=== PATIENT | female | born 1995 | race Two or more races ===

== ENCOUNTER 2018-08-07 11:24 | Emergency (ER) | payer OTHER ==
[~2018-08-07] VITALS: Ht 167.6 cm; Wt 59.9 kg
[2018-08-07 11:39] VITALS: BP 132/92; Ht 167.6 cm; Wt 59.9 kg
[2018-08-08] MEDS ORDERED: ONDANSETRON4 M3 PO (03:40)
[2018-08-08] MEDS ORDERED: [UNRECOGNIZED DRUG - OTHER] PO (03:41)
[2018-08-08] MEDS ORDERED: NORCO1 TA2 PO (03:41)
[2018-08-08] MEDS ORDERED: PEPCID20 MG PO (03:42)
[2018-08-08] MEDS ORDERED: MOT600 PO (03:43)
[2018-08-08] MEDS ORDERED: METOCLOPRAMIDE10 M2 PO (03:43)
== END 2018-08-07 11:49 | disposition left against medical advice (07) ==
LOC: ED 11:24
DX: Z53.21 Procedure and treatment not carried out due to patient leaving prior to being seen by health care provider (principal)

== ENCOUNTER 2018-08-08 00:29 | Inpatient (IN) | payer OTHER ==
[~2018-08-08] VITALS: Ht 170.2 cm; Wt 60.0 kg
[2018-08-08 00:39] VITALS: Ht 170.2 cm; Wt 60.0 kg
[2018-08-08 01:13] LABS: microscopic required? NO
[2018-08-08 01:23] LABS: UA SPECIFIC GRAVITY 1.015 (1.005-1.035); urine erythrocyte NEGATIVE (NEGATIVE)
[2018-08-08 01:33] LABS: BASOPHIL % 0.4 % (0-2); PLATELET COUNT 380 x10^3mcL (130-400); RED CELL DISTRIBUTION WIDTH 12.6 % (11.5-14.5)
[2018-08-08 01:43] LABS: CALCIUM 8.2 mg/dL (8.5-10.1); CHLORIDE SERUM 101 mmol/L (98-107); CREATININE SERUM 0.8 mg/dL (0.6-1.0); GFR1 > 60 mL/min; GLUCOSE SERUM 99 mg/dL (74-106); POTASSIUM SERUM 3.4 mmol/L (3.5-5.1); SODIUM SERUM 136 mmol/L (136-145)
[2018-08-08 01:48] LABS: ALBUMIN 3.8 g/dL (3.4-5.0); ALKALINE PHOSPHATASE 50 U/L (46-116); ALT/SGPT 22 U/L (14-59); AST/SGOT 17 U/L (15-37); BILIRUBIN TOTAL 0.6 mg/dL (0.20-1.00); LIPASE 142 IU/L (73-393); TOTAL PROTEIN, SERUM 6.9 g/dL (6.4-8.2)
[2018-08-08] MEDS ORDERED: ONDANSETRON4 M3 PO (03:40)
[2018-08-08] MEDS ORDERED: NORCO1 TA2 PO (03:41)
[2018-08-08] MEDS ORDERED: [UNRECOGNIZED DRUG - OTHER] PO (03:41)
[2018-08-08] MEDS ORDERED: PEPCID20 MG PO (03:42)
[2018-08-08] MEDS ORDERED: METOCLOPRAMIDE10 M2 PO (03:43)
[2018-08-08] MEDS ORDERED: MOT600 PO (03:43)
[2018-08-08 04:40] VITALS: BP 134/92
[2018-08-08 04:44] LABS: MAGNESIUM 1.9 mg/dL (1.8-2.4); PHOSPHOROUS 3.8 mg/dL (2.5-4.9)
[2018-08-08 04:45] LABS: CHOLESTEROL/HDL RATIO 2.4
[2018-08-08 08:01] LABS: AMPHETAMINE QUAL UR NONE DETECTED (See below)
[2018-08-08 08:08] VITALS: BP 132/85
[2018-08-08 08:12] LABS: T3 TOTAL 0.59 ng/mL
[2018-08-08 08:46] LABS: FREE T4 1.18 ng/dL (0.76-1.46); FREE THYROXINE INDEX 2.6 ug/dL (1.4-4.5); T4(THYROXINE) 6.9 ug/dL (4.7-13.3)
[2018-08-08 17:37] VITALS: BP 137/84
[2018-08-08 19:22] VITALS: BP 137/84
== END 2018-08-08 19:51 | disposition home or self-care (01) | DRG 254 ==
LOC: ED 00:29 → MU 03:36
PROVIDERS: Emergency Medicine; Family Medicine; Internal Medicine Gastroenterology
PROC: 0DB78ZX Excision of Stomach, Pylorus, Via Natural or Artificial Opening Endoscopic, Diagnostic (ICD-10-PCS; principal; 2018-08-08 12:30)
DX: K58.9 Irritable bowel syndrome, unspecified (principal); E87.6 Hypokalemia; F12.10 Cannabis abuse, uncomplicated; F13.10 Sedative, hypnotic or anxiolytic abuse, uncomplicated; Z68.20 Body mass index [BMI] 20.0-20.9, adult; Z71.51 Drug abuse counseling and surveillance of drug abuser
CPT/HCPCS: 43235; 84439; C9113; G0480; J1610; J2250; J2270; J2310; J2405; J2550; J3010; J3490; J7030; Q0092

== ENCOUNTER 2018-08-09 12:13 | Inpatient (IN) | payer OTHER ==
[~2018-08-09] VITALS: Ht 170.2 cm; Wt 59.0 kg
[~2018-08-09 12:13] MED LIST: METOCLOPRAMIDE10 M2 PO; MOT600 PO; NORCO1 TA2 PO; ONDANSETRON4 M3 PO; PEPCID20 MG PO; [UNRECOGNIZED DRUG - OTHER] PO
[2018-08-09 12:22] VITALS: Ht 170.2 cm; Wt 59.0 kg
[2018-08-09 14:34] LABS: BASOPHIL % 1.3 % (0-2); PLATELET COUNT 375 x10^3mcL (130-400); RED CELL DISTRIBUTION WIDTH 13.8 % (11.5-14.5)
[2018-08-09 14:44] LABS: microscopic required? NO
[2018-08-09 14:45] LABS: CALCIUM 8.9 mg/dL (8.5-10.1); CARBON DIOXIDE 19.7 mmol/L (21-32); CHLORIDE SERUM 101 mmol/L (98-107); CREATININE SERUM 0.7 mg/dL (0.6-1.0); GFR1 > 60 mL/min; GLUCOSE SERUM 73 mg/dL (74-106); POTASSIUM SERUM 3.3 mmol/L (3.5-5.1); SODIUM SERUM 138 mmol/L (136-145)
[2018-08-09 14:50] LABS: ALBUMIN 4.5 g/dL (3.4-5.0); ALKALINE PHOSPHATASE 54 U/L (46-116); ALT/SGPT 28 U/L (14-59); AST/SGOT 30 U/L (15-37); BILIRUBIN TOTAL 0.8 mg/dL (0.20-1.00); LIPASE 115 IU/L (73-393)
[2018-08-09 14:52] LABS: urine erythrocyte NEGATIVE (NEGATIVE)
[2018-08-09 17:44] LABS: AMPHETAMINE QUAL UR NONE DETECTED (See below)
[2018-08-09 17:56] LABS: T3 TOTAL 0.99 ng/mL
[2018-08-09 18:02] LABS: CHOLESTEROL/HDL RATIO 2.4; PHOSPHOROUS 1.5 mg/dL (2.5-4.9)
[2018-08-09 18:12] LABS: FREE T4 1.54 ng/dL (0.76-1.46); FREE THYROXINE INDEX 3.3 ug/dL (1.4-4.5); T4(THYROXINE) 8.9 ug/dL (4.7-13.3)
[2018-08-09 19:10] VITALS: BP 142/92
[2018-08-09 20:33] VITALS: BP 128/88
[2018-08-10 05:35] VITALS: BP 113/76
[2018-08-10 07:16] LABS: CALCIUM 8.4 mg/dL (8.5-10.1); CARBON DIOXIDE 24.6 mmol/L (21-32); CHLORIDE SERUM 109 mmol/L (98-107); CREATININE SERUM 0.7 mg/dL (0.6-1.0); GFR1 > 60 mL/min; GLUCOSE SERUM 83 mg/dL (74-106); MAGNESIUM 2.2 mg/dL (1.8-2.4); PHOSPHOROUS 4.2 mg/dL (2.5-4.9); SODIUM SERUM 140 mmol/L (136-145)
[2018-08-10 07:25] LABS: BASOPHIL % 0.4 % (0-2); PLATELET COUNT 340 x10^3mcL (130-400); RED CELL DISTRIBUTION WIDTH 12.9 % (11.5-14.5)
[2018-08-10 08:33] VITALS: BP 121/80
[2018-08-10] MEDS ORDERED: DOXYCYCLINE HY100 MG PO (10:39)
[2018-08-10 11:14] VITALS: BP 121/80
== END 2018-08-10 13:40 | disposition home or self-care (01) | DRG 254 ==
LOC: ED 12:13 → MU 17:02
PROVIDERS: Emergency Medicine; Internal Medicine
DX: K58.9 Irritable bowel syndrome, unspecified (principal); R18.8 Other ascites; N73.9 Female pelvic inflammatory disease, unspecified; E87.6 Hypokalemia; F12.20 Cannabis dependence, uncomplicated; Z68.20 Body mass index [BMI] 20.0-20.9, adult; K29.70 Gastritis, unspecified, without bleeding; F41.9 Anxiety disorder, unspecified
CPT/HCPCS: 83880; 84439; 87491; 87591; J0696; J1885; J2060; J2270; J2405; J2550; J3010; J3480; J3490; J7030; Q0092

== ENCOUNTER 2019-01-08 09:29 | Emergency (ER) | payer OTHER ==
[~2019-01-08] VITALS: Ht 170.2 cm; Wt 61.9 kg
[~2019-01-08 09:29] MED LIST changes: +DOXYCYCLINE HY100 MG PO
[2019-01-08 09:36] VITALS: Ht 170.2 cm; Wt 61.9 kg
[2019-01-08 10:34] LABS: BASOPHIL % 0.2 % (0-2); PLATELET COUNT 353 x10^3mcL (130-400); RED CELL DISTRIBUTION WIDTH 13.4 % (11.5-14.5)
[2019-01-08 10:34] LABS: microscopic required? NO
[2019-01-08 10:35] LABS: CALCIUM 8.7 mg/dL (8.5-10.1); CARBON DIOXIDE 26.3 mmol/L (21-32); CHLORIDE SERUM 102 mmol/L (98-107); CREATININE SERUM 0.8 mg/dL (0.6-1.0); GFR1 > 60 mL/min; GLUCOSE SERUM 102 mg/dL (74-106); POTASSIUM SERUM 3.9 mmol/L (3.5-5.1); SODIUM SERUM 139 mmol/L (136-145)
[2019-01-08 10:39] LABS: ALBUMIN 3.9 g/dL (3.4-5.0); ALKALINE PHOSPHATASE 62 U/L (46-116); ALT/SGPT 24 U/L (14-59); AMYLASE 67 U/L (25-115); AST/SGOT 22 U/L (15-37); BILIRUBIN TOTAL 0.8 mg/dL (0.20-1.00); LIPASE 81 IU/L (73-393); TOTAL PROTEIN, SERUM 7.3 g/dL (6.4-8.2)
[2019-01-08 10:46] LABS: UA SPECIFIC GRAVITY <=1.005 (1.005-1.035); urine erythrocyte NEGATIVE (NEGATIVE)
[2019-01-08 13:29] VITALS: BP 121/77
== END 2019-01-08 13:29 | disposition home or self-care (01) ==
LOC: ED 09:29
PROVIDERS: Specialist
DX: R10.32 Left lower quadrant pain (principal); R10.31 Right lower quadrant pain; R11.10 Vomiting, unspecified
CPT/HCPCS: J1885; J7030

== ENCOUNTER 2019-01-09 21:43 | Inpatient (IN) | payer OTHER ==
[~2019-01-09] VITALS: Ht 170.2 cm; Wt 65.7 kg
[2019-01-09 22:00] VITALS: Ht 170.2 cm; Wt 65.7 kg
--- NOTE | 2019-01-09 22:38 | NUR ---
PT PRESENTS TO THE ER TODAY FOR PERIUMBILCAL PAIN X 4 DAYS. PT WAS HERE YESTERDAY FOR THE SAME REASON AND ALL TESTS WERE NEGAITIVE AND PT WAS PRESCIBED BENTYL BUT PT STATES "I ONLY TOOK IT ONCE BECAUSE IT HURT MY STOMACH". PT STATES PAIN PERSISTED AND SHE WENT TO A DIFFERENT HOSPITAL WHERE THEY DID A CT SCAN WHICH WAS NORMAL PER THE PT. PT STATES THEY GAVE HER A RX FOR ZOFRAN BUT SHE DID NOT GET THE RX FILLED BECAUSE " I FELL ASLEEP". PT NOW COMPLAINS OF 10/10 PERIUMBILACAL PAIN DESCRIBED PRESSURE,BURNING, AND SHARP PAIN. PT COMPLAINS OF N/V/D FOR THE PAST 4 DAYS. PT STATES IT HAS BEEN 2 DAYS SINCE HER LAST BM AND SHE NORMAL HAS ONE EVERYDAY. 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 PT BOWEL SOUNDS ACTIVE IN ALL QUADRANTS. PT DENIES ANY OTHER SYPTOMS OF COMPLAINTS. VITAL SIGNS STABLE. RESPIRATIONS EVEN AND UNLABORED. NO ACUTE DISTRESS NOTED.
[2019-01-09 23:10] LABS: microscopic required? NO
[2019-01-09 23:21] LABS: BASOPHIL % 0.2 % (0-2); PLATELET COUNT 353 x10^3mcL (130-400); RED CELL DISTRIBUTION WIDTH 13.1 % (11.5-14.5)
[2019-01-09 23:24] LABS: urine erythrocyte NEGATIVE (NEGATIVE)
[2019-01-09 23:30] LABS: CALCIUM 7.9 mg/dL (8.5-10.1); CARBON DIOXIDE 24.2 mmol/L (21-32); CHLORIDE SERUM 105 mmol/L (98-107); CREATININE SERUM 0.8 mg/dL (0.6-1.0); GFR1 > 60 mL/min; GLUCOSE SERUM 92 mg/dL (74-106); POTASSIUM SERUM 3.4 mmol/L (3.5-5.1); SODIUM SERUM 139 mmol/L (136-145)
[2019-01-09 23:33] LABS: AMPHETAMINE QUAL UR NONE DETECTED (See below)
[2019-01-09 23:36] LABS: ALBUMIN 3.5 g/dL (3.4-5.0); ALKALINE PHOSPHATASE 52 U/L (46-116); ALT/SGPT 24 U/L (14-59); AST/SGOT 29 U/L (15-37); BILIRUBIN TOTAL 0.84 mg/dL (0.20-1.00); LIPASE 61 IU/L (73-393); TOTAL PROTEIN, SERUM 6.4 g/dL (6.4-8.2)
--- NOTE | 2019-01-09 23:57 | NUR ---
PT STATES SHE WAS WOKEN UP WITH PAIN BEGINNING TO RETURN. PT RATES PAIN 4/10 AT THIS TIME, STATING "THIS IS HOW IT STARTS AND QUICKLY GOES UP TO 10. I GET WOKEN UP WITH THE PAIN."
--- NOTE | 2019-01-10 00:52 | NUR ---
GAVE REPORT TO ROSY ON MED/SURG FOR CONTINUATION OF CARE.
--- NOTE | 2019-01-10 01:00 | NUR ---
PATIENT IS A 23 YEAR OLD FEMALE ADMITTED FROM ER VIA WHEELCHAIR DUE TO COMPLAIN OF ABDOMINAL PAIN. PATIENT IS AWAKE, ALERT, ORIENTED X4 WITH COMPLAIN OF PRESSURE LIKE ABOMINAL PAIN, PS 4/10. LBM 01/06/19. RESPIRATION EVEN AND UNLABORED, ON ROOM AIR. MOVES ALL EXTREMITIES FREELY. RADIAL AND PEDAL PULSES PALPABLE, NO EDEMA NOTED. SKIN DRY AND INTACT. PATIENT CLAIMS SHE USES [facility] SINCE SHE WAS 15 YEARS OLD LAST TIME SHE USED IT WAS A WEEK AGO. [facility] WILL CONTINUE TO MONITOR.
[2019-01-10 01:07] LABS: MAGNESIUM 1.6 mg/dL (1.8-2.4); PHOSPHOROUS 2.9 mg/dL (2.5-4.9)
[2019-01-10 01:15] VITALS: BP 112/64
[2019-01-10 01:15] LABS: CHOLESTEROL/HDL RATIO 2.5
[2019-01-10 01:16] LABS: T3 TOTAL 1.07 ng/mL
[2019-01-10 01:18] LABS: FREE T4 1.46 ng/dL (0.76-1.46); T4(THYROXINE) 9.6 ug/dL (4.7-13.3)
--- NOTE | 2019-01-10 02:20 | NUR ---
PATIENT COMPLAINED OF PRESSURE LIKE ABDOMINAL PAIN, PS 4-7/10. OFFERED NORCO 5/325 MG PO ORDERED BUT REFUSED. DR MARTINEZ MADE AWARE. ALSO MADE AWARE THAT PATIENT REFUSED GI COCKTAIL. WILL CONTINUE TO MONITOR.
--- NOTE | 2019-01-10 02:26 | NUR ---
PATIENT GIVEN TORADOL 15 MG IVP ORDERED FOR ABDOMINAL PAIN. PATIENT STATED "IT'S NOT HELPING MY PAIN." EXPLAINED TO PATIENT THAT SHE NEEDS TO GIVE IT TIME TO WORK. WILL CONTINUE TO MONITOR.
--- NOTE | 2019-01-10 02:40 | NUR ---
PATIENT CAME OUT OF HER ROOM CRYING, STATED "I NEED A BETTER PAIN MEDICATIONS, IT'S NOT WORKING." PATIENT ESCORTED BACK TO HER ROOM. DR MARTINEZ MADE AWARE PERSONALLY. PER DR MARTINEZ HE WILL TALK TO THE PATIENT SOON HE CAN. PATIENT MADE AWARE.
--- NOTE | 2019-01-10 02:45 | NUR ---
PATIENT CALLED AGAIN STILL COMPLAINING OF ABDOMINAL PAIN, LOOKING FOR THE DOCTOR. EXPLAINED TO PATIENT THAT THE MD WILL COME TALK TO HER SOON HE CAN. COMFORT MEASURES PROVIDED. WILL CONTINUE TO MONITOR.
--- NOTE | 2019-01-10 03:00 | NUR ---
DR MARTINEZ IN THE ROOM TALKING TO PATIENT.
--- NOTE | 2019-01-10 03:26 | NUR ---
PATIENT REFUSED POTASSIUM 20 MEQS PO DESPITE EXPLANATION AND ENCOURAGEMENT. WILL CONTINUE TO MONITOR.
[2019-01-10 06:06] VITALS: BP 109/65
--- NOTE | 2019-01-10 06:12 | NUR ---
PATIENT SLEEPING IN BED AT THIS TIME. RESPIRATION EVEN AND UNLABORED, ON ROOM AIR. NO COMPLAIN OF DISCOMFORT/PAIN. IV SITE NO SIGN OF INFILTRATION. ASSISTED WITH NEEDS. SAFETY OBSERVED. PLACED BED IN THE LOWEST POSITION. PLACED CALL LIGHT WITHIN REACH AT ALL TIMES.
[2019-01-10 06:26] LABS: BASOPHIL % 0.2 % (0-2); PLATELET COUNT 325 x10^3mcL (130-400); RED CELL DISTRIBUTION WIDTH 13.2 % (11.5-14.5)
[2019-01-10 06:41] LABS: CALCIUM 8.2 mg/dL (8.5-10.1); CARBON DIOXIDE 22.9 mmol/L (21-32); CHLORIDE SERUM 106 mmol/L (98-107); CREATININE SERUM 0.7 mg/dL (0.6-1.0); GFR1 > 60 mL/min; GLUCOSE SERUM 81 mg/dL (74-106); MAGNESIUM 1.8 mg/dL (1.8-2.4); PHOSPHOROUS 3.8 mg/dL (2.5-4.9); POTASSIUM SERUM 3.6 mmol/L (3.5-5.1); SODIUM SERUM 140 mmol/L (136-145)
--- NOTE | 2019-01-10 07:10 | NUR ---
RECEIVED BEDSIDE REPORT FROM SAMPLE PASTER NURSE AT THIS TIME. PATIENT RESTING CMOFORTABLY IN BED. NO APPARENT DISTRESS OR DISCOMFORT NOTED. BREATHING EVEN AND UNLABORED. NO RESPIRATORY DISTRESS NOTED. NO INDICATION OF CHEST PAIN AT THIS TIME. IV PATENT AND INTACT. NO INDICATION OF PAIN/DISCOMFORT AT THIS TIME. ALL QUESTIONS AND CONCERNS ADDRESSED. ALL NEEDS ATTENDED TO. ALL SAFETY PRECAUTIONS MAINTAINED. WILL CONTINUE TO MONITOR
[2019-01-10 09:34] VITALS: BP 107/66
--- NOTE | 2019-01-10 10:00 | NUR ---
MORNING MEDICATIONS ADMINSITERED. PATIENT TOLERATED WELL. NO ADVERSE EFFECTS NOTED. ALL NEEDS ATTENDED TO
--- NOTE | 2019-01-10 13:10 | NUR ---
PATIENT C/O ABD PAIN AT THIS TIME. TORADOL OFFERED TO PATIENT. PATIENT REFUSING TO TAKE TORADOL. PER PATIENT, TORADOL DOES NOT WORK. SPOKE TO DR ROMERO. REPORTED TO DR ROMERO PATIENT STATES ATIVAN HELPS HER. DR ROMERO TO INPUT ORDER FOR ATIVAN. WILL MEDICATE ORDERED. WILL CONTINUE TO MONITOR
--- NOTE | 2019-01-10 14:55 | NUR ---
PATIENT MEDICATED WITH ATIVAN AT THIS TIME. PATIENT TOLERATED WELL. NO ADVERSE EFFECTS NOTED. ALL NEEDS ATTENDED TO. WILL CONTINUE TO MONITOR
[2019-01-10 17:39] VITALS: BP 120/78
--- NOTE | 2019-01-10 19:08 | NUR ---
PATIENT RESTING COMFORTABLY IN BED AT THIS TIME. NO APPARENT DISTRESS OR DISCOMFORT NOTED. IV PATENT AND INTACT. ALL QUESTIONS AND CONCERNS ADDRESSED. SAFETY PRECAUTIONS MAINTAINED. ALL NEEDS ATTENDED TO. WILL ENDORSE ALL CARE TO LEGISLATIVE ADVOCATE NURSE
--- NOTE | 2019-01-10 19:50 | NUR ---
RECEIVED REPORT FROM DAY SHIFT RN. PT A/O X4. NO SOB ON ROOM AIR. NO C/O N/V/ABD PAIN AT THIS TIME. IV TO RAC, NS INFUSING. SAFETY MEASURES IN PLACE. BED IN LOWEST POSITION. SIDE RAILS UP X2. INSTRUCTED PT TO USE THE CALL LIGHT FOR ASSISTANCE. CALL LIGHT WITHIN REACH. FAMILY AT BEDSIDE.
[2019-01-10 20:49] VITALS: BP 112/64
--- NOTE | 2019-01-10 22:06 | NUR ---
ATIVAN GIVEN FOR ANXIETY.
--- NOTE | 2019-01-11 00:40 | NUR ---
PT RESTING WITH EYES CLOSED. BREATHING EVEN AND UNLABORED. NO FACIAL GRIMACING. NO DISTRESS NOTED. CALL LIGHT WITHIN REACH.
[2019-01-11 05:50] VITALS: BP 116/82
--- NOTE | 2019-01-11 05:59 | NUR ---
PT SLEPT WELL DURING SHIFT. NO SOB ON ROOM AIR. NO C/O N/V/ABD PAIN. NO DISTRESS NOTED. PT STATES FEELING BETTER. SAFETY MEASURES MAINTAINED. ALL NEEDS ATTENDED TO. CALL LIGHT WITHIN REACH. WILL ENDORSE CONTINUITY OF CARE TO ONCOMING RN.
[2019-01-11 06:09] LABS: BASOPHIL % 0.5 % (0-2); PLATELET COUNT 350 x10^3mcL (130-400)
[2019-01-11 06:28] LABS: CALCIUM 8.2 mg/dL (8.5-10.1); CARBON DIOXIDE 25.6 mmol/L (21-32); CHLORIDE SERUM 105 mmol/L (98-107); CREATININE SERUM 0.7 mg/dL (0.6-1.0); GFR1 > 60 mL/min; GLUCOSE SERUM 83 mg/dL (74-106); POTASSIUM SERUM 3.7 mmol/L (3.5-5.1); SODIUM SERUM 138 mmol/L (136-145)
--- NOTE | 2019-01-11 07:30 | NUR ---
RECIEVED PT RESTING COMFORTABLY IN BED. VS WNL AND NO RESPIRATORY DISTRESS NOTED AT THIS TIME. PT DENIES ANY PAIN AT THIS TIME. IV AT RAC 20G INTACT AND PATENT. NS RUNNING AT 100ML/HR. PT A/OX4, LUNGS CTA, PULSES PALPABE, SKIN CDI, VOIDS FREELY, AMBULATORY. PT WELL WITH CARE. SAFETY PRECAUTIONS IN PLACE, CALL LIGHT WITHIN REACH. WILL MONITOR.
--- NOTE | 2019-01-11 08:38 | NUR ---
PATIENT REFUSED SENAKOT AND COLACE AT MORNING MED PASS. SHE STATES THAT SHE ALREADY HAD X2 LOOSE STOOLS. DR RICE NOTIFIED. WILL MONITOR
--- NOTE | 2019-01-11 08:38 | NUR ---
PATIENT REFUSED SENAKOT AND COLACE AT MORNING MED PASS. SHE STATES THAT SHE ALREADY HAD X2 LOOSE STOOLS. DR RICE NOTIFIED. WILL MONITOR
--- NOTE | 2019-01-11 08:53 | NUR ---
PATIENT COMPLAINED OF ANXIETY. ATIVAN GIVEN PER RX (SEE eMAR). FARHEEN REASSESS EFFECTIVENESS.
--- NOTE | 2019-01-11 08:53 | NUR ---
PATIENT COMPLAINED OF ANXIETY. ATIVAN GIVEN PER RX (SEE eMAR). FARHEEN REASSESS EFFECTIVENESS.
[2019-01-11 09:13] VITALS: BP 115/77
--- NOTE | 2019-01-11 09:49 | NUR ---
DR RICE AT BEDSIDE TO SEE PATIENT, DR RICE ASKED HOW SHE WAS FEELING AND SHE RESPONDED WELL. DR RICE THEN ASKED IF SHE WAS READY TO GO HOME AND PT RESPONDED YES. NO NEW ORDERS AT THIS TIME. WILL MONITOR
[2019-01-11 12:05] VITALS: BP 115/77
--- NOTE | 2019-01-11 12:17 | NUR ---
PT STABLE FOR DISCHARGE HOME. DISCHARGE INSTRUCTIONS, BELONGINGS, AND EDUCATION REVIEWED WITH PATIENT. PATIENT VERBALIZED UNDERSTANDING TO F/U WITH PCP. IV REMOVED WITH CATH INTACT AND ARM BAND REMOVED. PT ASSISTED DOWN TO LOBBY
== END 2019-01-11 12:17 | disposition home or self-care (01) | DRG 812 ==
LOC: ED 21:43 → MU 01-10 00:28
PROVIDERS: Emergency Medicine; ADMIT Family Medicine
DX: T40.7X1A Poisoning by cannabis (derivatives), accidental (unintentional), initial encounter (principal); E83.42 Hypomagnesemia; E87.6 Hypokalemia; G43.A0 Cyclical vomiting, in migraine, not intractable; E83.51 Hypocalcemia; E05.80 Other thyrotoxicosis without thyrotoxic crisis or storm; K29.70 Gastritis, unspecified, without bleeding; Y92.89 Other specified places as the place of occurrence of the external cause; K59.00 Constipation, unspecified
CPT/HCPCS: 83880; 84439; C9113; J1885; J2060; J2405; J2550; J2765; J3010; J3490; J7030; Q0092

== ENCOUNTER 2019-12-24 10:06 | Emergency (ER) | payer OTHER ==
[~2019-12-24] VITALS: Ht 170.2 cm; Wt 62.6 kg
[2019-12-24 10:14] VITALS: Ht 170.2 cm; Wt 62.6 kg
[2019-12-24 11:26] LABS: CALCIUM 9.3 mg/dL (8.5-10.1); CARBON DIOXIDE 28.6 mmol/L (21-32); CHLORIDE SERUM 100 mmol/L (98-107); CREATININE SERUM 0.8 mg/dL (0.6-1.0); GFR1 > 60 mL/min; GLUCOSE SERUM 88 mg/dL (74-106); POTASSIUM SERUM 3.7 mmol/L (3.5-5.1); SODIUM SERUM 140 mmol/L (136-145)
[2019-12-24 11:28] VITALS: BP 120/77
[2019-12-24 11:31] LABS: ALBUMIN 3.8 g/dL (3.4-5.0); ALKALINE PHOSPHATASE 73 U/L (46-116); ALT/SGPT 23 U/L (14-59); AST/SGOT 24 U/L (15-37); BILIRUBIN TOTAL 0.6 mg/dL (0.20-1.00); LIPASE 73 IU/L (73-393); TOTAL PROTEIN, SERUM 7.4 g/dL (6.4-8.2)
[2019-12-24 11:52] LABS: UA SPECIFIC GRAVITY >=1.030 (1.005-1.035); microscopic required? YES; urine erythrocyte 2+ (NEGATIVE)
[2019-12-24 12:01] LABS: AMPHETAMINE QUAL UR NONE DETECTED (See below)
[2019-12-24 12:06] LABS: PLATELET COUNT 416 x10^3mcL (130-400); RED CELL DISTRIBUTION WIDTH 14.7 % (11.5-14.5)
[2019-12-24 12:07] LABS: BASOPHIL % 0.3 % (0-2)
== END 2019-12-24 13:21 | disposition home or self-care (01) ==
LOC: ED 10:06
PROVIDERS: Emergency Medicine
DX: N39.0 Urinary tract infection, site not specified (principal)
CPT/HCPCS: 36415; Q0162

== ENCOUNTER 2020-01-30 03:58 | Emergency (ER) | payer OTHER ==
[~2020-01-30] VITALS: Ht 170.2 cm; Wt 63.3 kg
[2020-01-30 04:16] VITALS: Ht 170.2 cm; Wt 63.3 kg
[2020-01-30 05:00] LABS: PLATELET COUNT 380 x10^3mcL (130-400)
[2020-01-30 05:05] LABS: RED CELL DISTRIBUTION WIDTH 14.9 % (11.5-14.5)
[2020-01-30 05:07] LABS: CALCIUM 9.2 mg/dL (8.5-10.1); CARBON DIOXIDE 27.7 mmol/L (21-32); CHLORIDE SERUM 103 mmol/L (98-107); CREATININE SERUM 0.9 mg/dL (0.6-1.0); GFR1 > 60 mL/min; GLUCOSE SERUM 91 mg/dL (74-106); POTASSIUM SERUM 3.7 mmol/L (3.5-5.1); SODIUM SERUM 140 mmol/L (136-145)
[2020-01-30 05:12] LABS: ALBUMIN 4.1 g/dL (3.4-5.0); ALKALINE PHOSPHATASE 64 U/L (46-116); ALT/SGPT 24 U/L (14-59); AMYLASE 65 U/L (25-115); AST/SGOT 20 U/L (15-37); LIPASE 64 IU/L (73-393); MAGNESIUM 1.9 mg/dL (1.8-2.4); TOTAL PROTEIN, SERUM 7.5 g/dL (6.4-8.2)
[2020-01-30 07:39] VITALS: BP 118/78
== END 2020-01-30 07:39 | disposition home or self-care (01) ==
LOC: ED 03:58
PROVIDERS: Emergency Medicine
DX: R11.15 Cyclical vomiting syndrome unrelated to migraine (principal); R10.816 Epigastric abdominal tenderness; G89.29 Other chronic pain; R63.0 Anorexia
CPT/HCPCS: J1630; J2270; J2405; J3490; J7030

== ENCOUNTER 2020-01-30 18:42 | Emergency (ER) | payer OTHER ==
[~2020-01-30] VITALS: Ht 170.2 cm; Wt 63.5 kg
[2020-01-30 18:51] VITALS: Ht 170.2 cm; Wt 63.5 kg
[2020-01-30 21:07] VITALS: BP 118/65
== END 2020-01-30 21:07 | disposition home or self-care (01) ==
LOC: ED 18:42
DX: R11.2 Nausea with vomiting, unspecified (principal); R51 Headache; F12.10 Cannabis abuse, uncomplicated; G89.29 Other chronic pain
CPT/HCPCS: J1885; J2405; J2765; J7030

== ENCOUNTER 2020-01-31 20:19 | Emergency (ER) | payer OTHER ==
[~2020-01-31] VITALS: Ht 170.2 cm; Wt 64.9 kg
[2020-01-31 20:25] VITALS: Ht 170.2 cm; Wt 64.9 kg
[2020-01-31 21:42] LABS: BASOPHIL % 0.3 % (0-2); PLATELET COUNT 387 x10^3mcL (130-400); RED CELL DISTRIBUTION WIDTH 14.5 % (11.5-14.5)
[2020-01-31 21:50] LABS: CALCIUM 9.4 mg/dL (8.5-10.1); CARBON DIOXIDE 22.8 mmol/L (21-32); CHLORIDE SERUM 105 mmol/L (98-107); CREATININE SERUM 1.1 mg/dL (0.6-1.0); GFR1 > 60 mL/min; GLUCOSE SERUM 94 mg/dL (74-106); SODIUM SERUM 144 mmol/L (136-145)
[2020-01-31 21:54] LABS: ALBUMIN 4.5 g/dL (3.4-5.0); ALKALINE PHOSPHATASE 62 U/L (46-116); ALT/SGPT 23 U/L (14-59); AMYLASE 70 U/L (25-115); AST/SGOT 18 U/L (15-37); BILIRUBIN TOTAL 0.8 mg/dL (0.20-1.00); LIPASE 77 IU/L (73-393); TOTAL PROTEIN, SERUM 7.9 g/dL (6.4-8.2)
[2020-02-01 00:16] VITALS: BP 117/77
== END 2020-02-01 00:16 | disposition home or self-care (01) ==
LOC: ED 20:19
PROVIDERS: Emergency Medicine
DX: R11.15 Cyclical vomiting syndrome unrelated to migraine (principal)
CPT/HCPCS: J1100; J1200; J1885; J7042; J8597

== ENCOUNTER 2020-02-03 10:37 | Emergency (ER) | payer OTHER ==
[~2020-02-03] VITALS: Ht 170.2 cm; Wt 63.5 kg
[2020-02-03 10:46] VITALS: Ht 170.2 cm; Wt 63.5 kg
[2020-02-03 11:59] LABS: CALCIUM 9.3 mg/dL (8.5-10.1); CARBON DIOXIDE 22.5 mmol/L (21-32); CHLORIDE SERUM 104 mmol/L (98-107); GFR1 > 60 mL/min; GLUCOSE SERUM 79 mg/dL (74-106); POTASSIUM SERUM 3.5 mmol/L (3.5-5.1); SODIUM SERUM 142 mmol/L (136-145)
[2020-02-03 12:04] LABS: ALBUMIN 4.4 g/dL (3.4-5.0); ALKALINE PHOSPHATASE 62 U/L (46-116); ALT/SGPT 23 U/L (14-59); AST/SGOT 17 U/L (15-37); BILIRUBIN TOTAL 0.5 mg/dL (0.20-1.00); LIPASE 89 IU/L (73-393); TOTAL PROTEIN, SERUM 7.4 g/dL (6.4-8.2)
[2020-02-03 12:13] LABS: PLATELET COUNT 411 x10^3mcL (130-400)
[2020-02-03 14:10] VITALS: BP 115/86
== END 2020-02-03 14:10 | disposition home or self-care (01) ==
LOC: ED 10:37
PROVIDERS: Emergency Medicine
DX: K29.20 Alcoholic gastritis without bleeding (principal); G89.29 Other chronic pain
CPT/HCPCS: J2270; J2405; J2765; J3490; J7030

== ENCOUNTER 2020-02-03 20:51 | Emergency (ER) | payer OTHER ==
[~2020-02-03] VITALS: Ht 170.2 cm; Wt 63.0 kg
[2020-02-03 20:53] VITALS: Ht 170.2 cm; Wt 63.0 kg
[2020-02-03 23:13] VITALS: BP 123/89
== END 2020-02-03 23:13 | disposition home or self-care (01) ==
LOC: ED 20:51
DX: R11.2 Nausea with vomiting, unspecified (principal); R10.13 Epigastric pain
CPT/HCPCS: J1200; J1885; J2270; J2765; J3490

== ENCOUNTER 2020-07-26 14:08 | Emergency (ER) | payer OTHER ==
[~2020-07-26] VITALS: Ht 170.2 cm; Wt 65.8 kg
[2020-07-26 14:20] VITALS: BP 115/67; Ht 170.2 cm; Wt 65.8 kg
== END 2020-07-26 15:03 | disposition left against medical advice (07) ==
LOC: ED 14:08
DX: Z53.21 Procedure and treatment not carried out due to patient leaving prior to being seen by health care provider (principal)
CPT/HCPCS: 82962